=== PATIENT | male | born 1990 ===

== ENCOUNTER 2018-05-30 09:30 | Emergency (ER) | payer SELFPAY ==
[~2018-05-30] VITALS: Ht 175.3 cm; Wt 68.0 kg
[2018-05-30 09:36] VITALS: BP 134/86
--- NOTE | 2018-05-30 09:36 | NUR ---
ED Nurse Note: A/Ox4. Ambulated in to ER from home due to discomfort on left throat x7 days. Pt reports to have discomfort when he swallow. Denies fever, chills, dizziness.
[2018-05-30] MEDS ORDERED: NKM (09:52)
[2018-05-30] MEDS ORDERED: Dexamethasone 4mg/ml vial IM ONE (10:00)
[2018-05-30] MEDS ORDERED: Bicillin LA 1.2MMU/2ML SYR IM ONE (10:00)
[2018-05-30] MEDS ORDERED: Lidocaine 2% Visc 15ml soln ORAL ONE (10:00)
[2018-05-30] MEDS ORDERED: IBUPROFEN600 MG ORAL (10:20)
[2018-05-30] MEDS ORDERED: LIDOCAINE VISC100 ML ORAL (10:20)
[2018-05-30 10:32] VITALS: BP 130/79
--- NOTE | 2018-05-30 10:32 | Emergency Room Report ---
History of Present Illness General Chief Complaint: Sore Throat Source: Patient Present Illness HPI Patient is a 28-year-old male patient presented for increased sore throat. This is been present for approximately 1 week. Patient reports having increased pain to the left side of his neck. He denies any difficulty breathing. He reports having increased pain while swallowing. He attempted to drink cold fluids salt water rinses. He denies any fever or vomiting. He reports having slight vocal changes. Allergies: Coded Allergies: No Known Allergies (Unverified , 05/30/18) Patient History Past Medical History: see triage record Reviewed Nursing Documentation: PMH: Agreed; PSxH: Agreed Nursing Documentation-PMH Past Medical History: No Stated History Review of Systems All Other Systems: negative except mentioned in HPI Physical Exam Vital Signs Date Time Temp Pulse Resp B/P (MAP) Pulse Ox O2 Delivery O2 Flow Rate FiO2 05/30/18 09:34 98.4 82 18 134/86 98 Room Air General Appearance: well appearing, no apparent distress, alert, GCS 15 Head: normocephalic, atraumatic ENT: hearing grossly normal, normal voice, uvula midline, tonsillar swelling - left side slide posterior pharyngeal swelling, no uvular deviation, lymphadenopathy to left side of neck Neck: full range of motion, supple Respiratory: no respiratory distress, speaking full sentences Cardiovascular #1: normal inspection Gastrointestinal: normal inspection, normal bowel sounds, non tender Musculoskeletal: normal inspection Neurologic: normal inspection, alert, oriented x3, responsive, normal gait Psychiatric: normal inspection, mood/affect normal Skin: no rash Medical Decision Making Diagnostic Impression: Primary Impression: Peritonsillar cellulitis ER Course Patient presented for sore throat. Differential diagnosis included but was not limited to meningitis, exudative tonsillitis, retropharyngeal abscess, epiglottitis, strep pharyngitis. Patient has a benign exam and does not appear to require any further imaging or laboratory testing at this time. Patient appears to have peritonsillar cellulitis at this time. There is no definite abscess. Uvula appears to be midline. There is some appreciable soft tissue swelling. Patient is able to tolerate oral fluids and does not appear dehydrated. Patient was given IM penicillin as well as IM Decadron. Patient was advised to recheck in 2 days and to return earlier if he began having increased difficulty swallowing opening his mouth or other concerns. Patient was advised that he may need a drainage procedure if area worsens. Last Vital Signs Date Time Temp Pulse Resp B/P (MAP) Pulse Ox O2 Delivery O2 Flow Rate FiO2 05/30/18 09:53 82 18 Room Air 05/30/18 09:36 98.4 134/86 98 Status: improved Disposition: HOME, SELF-CARE Condition: Stable Scripts Lidocaine HCl 2% Viscous (Lidocaine HCl 2% Viscous) 100 Ml Solution 15 ML ORAL QID for pain, #150 ML Prov: Akira Andrade MD 05/30/18 Ibuprofen* (MOTRIN*) 600 Mg Tablet 600 MG ORAL Q8H PRN for For Pain, #30 TAB 0 Refills Prov: Akira Andrade MD 05/30/18 Patient Instructions: Peritonsillar Cellulitis Additional Instructions: Recheck in 2 days for reevaluation of infection. Return if unable to swallow or open mouth. Akira Andrade MD May 30, 2018 10:32
--- NOTE | 2018-05-30 10:32 | NUR ---
ED Nurse Note: A/Ox4. Pt is cleared by Dr. Andrade. DC instruction and prescription given, pt verbalized understanding. ID wrist band removed. Denies any pain at this time. All belongings taken by pt. Pt ambulated out of ER with steady gait.
== END 2018-05-30 10:34 | disposition home or self-care (01) ==
LOC: EMR 10:01
DX: J36 Peritonsillar abscess (principal); J02.9 Acute pharyngitis, unspecified; F17.200 Nicotine dependence, unspecified, uncomplicated
CPT/HCPCS: 96372; 99283; J0570; J1100; J0561